=== PATIENT | male | born 1945 | race Caucasian/White ===

== ENCOUNTER 2017-03-24 10:47 | Emergency (ER) | payer OTHER ==
[~2017-03-24] VITALS: Ht 177.8 cm; Wt 99.8 kg
[~2017-03-24 10:47] MED LIST: ANALGESIC325 MG PO; ASPIRIN EC325 M1 PO; ASPIRIN EC81 M1 PO; CARVEDILOL6.25 MG PO; COUMADIN 2.5MG2.5 M1 PO; LOVASTAT20 PO; NORCO 5-325 TA1 EACH PO; PRILOSEC 20 MG20 MG PO
[2017-03-24 11:03] LABS: ABSOLUTE BASOPHILS 0.1 thou/uL (0.0-0.2); ABSOLUTE EOSINOPHILS 0.1 thou/uL (0.0-0.7); ABSOLUTE LYMPHOCYTES 1.6 thou/uL (0.8-5.3); ABSOLUTE MONOCYTES 0.6 thou/uL (0.0-1.2); BASOPHILS 0.8 %; EOSINOPHILS 1.5 %; HEMATOCRIT 46.6 % (42.0-52.0); HEMOGLOBIN 15.3 gm/dL (14.0-18.0); LYMPHOCYTES 18.9 %; MCHC 32.9 g/dL (28.0-37.0); MCV 85.2 fL (80.0-100.0); MONOCYTES 7.4 %; MPV 8.8 fl. (7.2-11.1); NUCLEATED RBCS 0 /100WBC; PLATELET COUNT* 214 thou/uL (150-400); POLYS 71.4 %; RBC 5.46 mil/uL (4.50-6.00); RDW-CV 13.9 % (10.5-14.5); WBC 8.3 thou/uL (4.0-11.0)
[2017-03-24 11:13] LABS: ANION GAP 6 mmol/L (7-16); BUN 19 mg/dL (7-18); CHLORIDE 105 mmol/L (98-107); CO2 31 mmol/L (21-32); CREATININE 1.1 mg/dL (0.6-1.3); GLUCOSE 154 mg/dL (70-99); POTASSIUM 4.3 mmol/L (3.5-5.1); SODIUM 142 mmol/L (136-145)
[2017-03-24 11:16] LABS: APTT 29.4 Seconds (25.0-31.3); INR 1.1; PROTIME 10.4 Seconds (9.20-11.50)
[2017-03-24 11:47] LABS: ALBUMIN 3.6 g/dL (3.4-5.0); ALKALINE PHOSPHATASE 71 U/L (46-116); CK-MB MASS 0.6 ng/mL (<0.5-3.6); LIPASE 240 U/L (73-393); MAGNESIUM 2.1 mg/dL (1.8-2.4); NT-PRO BRAIN NAT PEPTIDE 882 pg/mL (<300); SGOT 15 U/L (15-37); SGPT 22 U/L (30-65); TOTAL BILIRUBIN 1.4 mg/dL (<0.1-1.0); TOTAL PROTEIN 7.7 g/dL (6.4-8.2); TROPONIN-I LEVEL <0.06 ng/mL (<0.06)
[2017-03-24 13:04] VITALS: BP 171/103
--- NOTE | 2017-03-24 16:23 | EKG ---
[place] [address] ELECTROCARDIOGRAM REPORT Name: HAROON ROBERTSON [id number] Admission: 03/24/17 Attend Phys: Discharge: 03/24/17 Date of : 43 Report #: [id number] THIS REPORT FOR: //name// [facility] ED Test Date: 2017-03-24 Test Time: 10:54:19 Pat Name: HAROON ROBERTSON Department: Room: Gender: M Business Rules Developer: Madhu PEREZ : 1945 Requested By: Greg Goff Order Number: [id number] MD: Andres Barton Measurements Intervals [place] Rate: 78 P: PA: QRS: 13 QRSD: 85 T: 50 QT: 402 QTc: 458 Interpretive Statements Atrial fibrillation early transition Compared to ECG 03/20/2013 16:48:59 ST (T wave) deviation no longer present Electronically Signed On 03-24-2017 16:23:11 BIOINFORMATICS TECHNICIAN by Andres Barton [email or web address] <ELECTRONICALLY SIGNED> By: Andres Barton MD, [facility] 03/24/17 1623 1053 53 Andres Barton MD, FACC /EPI
== END 2017-03-24 13:07 | disposition home or self-care (01) ==
LOC: M.ERS 10:47
PROVIDERS: Family Medicine
DX: F41.9 Anxiety disorder, unspecified (principal); I48.91 Unspecified atrial fibrillation; I10 Essential (primary) hypertension; Z86.73 Personal history of transient ischemic attack (TIA), and cerebral infarction without residual deficits

== ENCOUNTER 2019-04-23 07:13 | Inpatient (IN) | payer MEDICARE ==
[~2019-04-23] VITALS: Ht 180.3 cm; Wt 102.5 kg
[2019-04-23 07:14] VITALS: BP 209/112
--- NOTE | 2019-04-23 07:23 | NUR ---
DR AMEZQUITA TO EVALUATE
[2019-04-23 07:56] LABS: ABSOLUTE BASOPHILS 0.1 thou/uL (0.0-0.2); ABSOLUTE EOSINOPHILS 0.1 thou/uL (0.0-0.7); ABSOLUTE LYMPHOCYTES 1.7 thou/uL (0.8-5.3); ABSOLUTE MONOCYTES 0.8 thou/uL (0.0-1.2); ABSOLUTE NEUTROPHILS 8.2 thou/uL (1.6-8.1); BASOPHILS 1.1 %; EOSINOPHILS 1.2 %; HEMATOCRIT 44.2 % (42.0-52.0); HEMOGLOBIN 14.9 gm/dL (14.0-18.0); LYMPHOCYTES 15.4 %; MCH 28.8 pg (26.0-34.0); MCHC 33.8 g/dL (28.0-37.0); MCV 85.2 fL (80.0-100.0); MONOCYTES 7.1 %; MPV 9.1 fl. (7.2-11.1); NUCLEATED RBCS 0 /100WBC; PLATELET COUNT* 216 thou/uL (150-400); POLYS 75.2 %; RBC 5.19 mil/uL (4.50-6.00); RDW-CV 14.5 % (10.5-14.5); WBC 10.9 thou/uL (4.0-11.0)
[2019-04-23 08:07] LABS: CALCIUM 8.1 mg/dL (8.5-10.1); CREATININE 0.9 mg/dL (0.6-1.3); POTASSIUM 3.6 mmol/L (3.5-5.1)
[2019-04-23 08:08] LABS: APTT 30.1 Seconds (25.0-31.3); PROTIME 10.4 Seconds (9.20-11.50)
[2019-04-23 08:20] LABS: INFLUENZA A ANTIGEN Negative (Negative); INFLUENZA B ANTIGEN Negative (Negative)
[2019-04-23 08:22] LABS: ALBUMIN 3.4 g/dL (3.4-5.0); MAGNESIUM 1.6 mg/dL (1.8-2.4); TOTAL PROTEIN 7.8 g/dL (6.4-8.2)
--- NOTE | 2019-04-23 13:30 | NUR ---
REPORT GIVEN TO JELENA HARDY WHO IS TO ASSUME PT CARE INPATIENT NURSE.
[2019-04-23 13:37] VITALS: BP 180/99
[2019-04-23 14:10] VITALS: BP 184/84
[2019-04-23 14:40] LABS: ANION GAP 9 mmol/L (7-16); CHLORIDE 102 mmol/L (98-107); CHOLESTEROL 167 mg/dL (<200); CO2 29 mmol/L (21-32); HDL CHOLESTEROL 37 mg/dL (>40); LDL CHOLESTEROL 119 mg/dL (<100); POTASSIUM 3.6 mmol/L (3.5-5.1); SERUM ASSESSMENT CLEAR; SODIUM 140 mmol/L (136-145); TC:HDL 4.5 Ratio (Not establshd); TRIGLYCERIDE 56 mg/dL (<150); VLDL 11 mg/dL (<40)
--- NOTE | 2019-04-23 15:09 | NUR ---
PT ADMITTED TO ROOM 210 FROM ED WITH CHEST PAIN AND PNA VIA CART. PT IS ALERT AND ABLE TO ANSWER APPROPRIATELY.VSS ON RA. PT C/O PAIN TO BILATERAL FEET. IVSL.PT IS LIVING IN [place] AND HAS BEEN LIVING THERE FOR 3 YEARS POST DIVORCE BECAUSE FRIEND OWNS [place]. PT EDUCATED TO PLAN OF CARE,TREATMENTS, FALL PRECAUTIONS AND CALL LIGHT. CARLOS
[2019-04-23 16:00] VITALS: BP 198/96
[2019-04-23 20:30] VITALS: BP 144/67
[2019-04-24] VITALS (7 sets, daily range): BP systolic 147–187; BP diastolic 65–85
--- NOTE | 2019-04-24 05:40 | NUR ---
PT CARE ASSUMED AT 1930. SAT MAINTAINED IN RA. PT IS CONFUSED. INCONTINENT OF BLADDER. C/O PAIN, MEDICATION GIVEN PER EMAR. HOURLY ROUNDING DONE FOR PT SAFETY. CALL LIGHT WITHIN REACH AND BED IN LOW POSITION. HOURLY ROUNDING DONE FOR PT SAFETY.
[2019-04-24 10:51] LABS: URINE BILIRUBIN NEGATIVE (Negative); URINE BLOOD NEGATIVE (Negative); URINE CLARITY CLEAR; URINE COLOR YELLOW; URINE GLUCOSE-RANDOM 3+ (Negative); URINE KETONES NEGATIVE (Negative); URINE LEUKOCYTES-REFLEX NEGATIVE (Negative); URINE NITRITE-REFLEX NEGATIVE (Negative); URINE PROTEIN 2+ (Negative)
[2019-04-24 10:56] LABS: BACTERIA-REFLEX 1-9 Few /HPF (None Seen); MUCUS 0-3 Light strn/LPF (None Seen); SQUAMOUS 0-3 Few /LPF (0-3); URINE RBC 0-2 Rare /HPF (0-2); URINE WBC-REFLEX 0-5 Rare /HPF (0-5)
[2019-04-24 10:57] LABS: CASTS None Seen /LPF (None Seen); CRYSTALS None Seen /LPF (None Seen)
--- NOTE | 2019-04-24 12:27 | NUR ---
Pt is A&O. Resides at the [facility]. Pt is independent, goes to [place] to get meals. Pt's neighbor or a cab provides transportation. Pt uses a cane for mobility, Pt asked if he qualifies for a new cane. Per Daniella at [facility], Pt does not currently have Part B benefits, so Pt will need to call Medicare to activate his Part B benefits or pay henson for one. CM to update Pt. Hx of , does not recall the name of the agency. Hx of skilled at [facility]. Per Pt, he plans to move in with his son in the near future. Goal is home at in, following.
--- NOTE | 2019-04-24 16:30 | 2DMMODE ---
[place] [address] 2 D/M-MODE ECHOCARDIOGRAM Name: AILYNHAROON Room: [address] IN .R.#: [id number] Admission: 04/23/19 Attend Phys: Nabor Madrigal Discharge: Date of : 43 Date of Service: 04/24/19 1629 Report #: [id number] THIS REPORT FOR: cc: FAM - No family physician/PCP FAM - No family physician/PCP Michael Cortez MD [facility] ~ APPROVED REPORT Study performed: 04/24/2019 10:22:42 EXAM: Comprehensive 2D, Doppler, and color-flow Echocardiogram Patient Location: In-Patient Room #: [facility] BSA: 2.18 HR: 77 bpm BP: 164/79 mmHg Other Information Study Quality: Good Indications Atrial Fibrillation Dyspnea 2D Dimensions IVSd: 13.69 (7-11mm) LVOT Diam: 20.51 (18-24mm) LVDd: 53.57 mm PWd: 11.25 (7-11mm) Ascending Ao: 38.54 (22-36mm) LVDs: 30.52 (25-40mm) Aortic Root: 24.28 mm Volumes Left Atrial Volume (Systole) LA ESV Index: 46.40 mL/m2 Aortic Valve AoV Peak Mikael.: 1.53 m/s AO Peak Gr.: 9.34 mmHg LVOT Max P.23 mmHg AO Mean Gr.: 5.30 mmHg LVOT Mean P.89 mmHg LVOT Max V: 1.03 m/s AO V2 VTI: 27.76 cm LVOT Mean V: 0.62 m/s LYDIA (VTI): 2.16 cm2 LVOT V1 VTI: 18.17 cm AI [place]: 3.31 m/s2 [place] [address] 2 D/M-MODE ECHOCARDIOGRAM Name: HAROON ROBERTSON Room: [address]#: [id number] Admission: 04/23/19 Attend Phys: Nabor Madrigal Discharge: Date of : 43 Date of Service: 04/24/19 1629 Report #: [id number] AI PHT: 394.17 ms Mitral Valve MV Decel. Time: 154.09 ms MV PHT: 44.69 ms MVA (PHT): 4.92 cm2 TDI Medial E' Mikael.: 0.07 m/s Lateral E' Mikael.: 0.11 m/s Pulmonary Valve PV Peak Mikael.: 0.91 m/s PV Peak Gr.: 3.29 mmHg Tricuspid Valve RAP Estimate: 5.00 mmHg TR Peak Gr.: 30.99 mmHg RVSP: 35.99 mmHg PA Pressure: 35.99 mmHg Left Ventricle The left ventricle is normal size. There is normal LV segmental wall motion. There is normal left ventricular wall thickness. Left ventricular systolic function is normal. The left ventricular ejection fraction is within the normal range. LVEF is 55%. This study is not technically sufficient to allow evaluation of the LV diastolic function due to atrial fibrillation. Right Ventricle The right ventricle is normal size. The right ventricular systolic function is normal. Atria Left atrium is mildly dilated. The right atrium size is normal. Aortic Valve Mild aortic valve sclerosis. Mild to moderate aortic regurgitation. There is no aortic valvular stenosis. Mitral Valve The mitral valve is normal in structure. Mild to moderate mitral regurgitation. No evidence of mitral valve stenosis. Tricuspid Valve The tricuspid valve is normal in structure. Mild [place] [address] 2 D/M-MODE ECHOCARDIOGRAM Name: HAROON ROBERTSON Room: [address]#: [id number] Admission: 04/23/19 Attend Phys: Nabor Madrigal Discharge: Date of : 43 Date of Service: 04/24/19 1629 Report #: [id number] Pulmonic Valve The pulmonary valve is normal in structure. Mild pulmonic regurgitation. Great Vessels The aortic root is normal in size. IVC is normal in size and collapses >50% with inspiration. Pericardium There is no pericardial effusion. <Conclusion> The left ventricle is normal size. There is normal left ventricular wall thickness. Left ventricular systolic function is normal. The left ventricular ejection fraction is within the normal range. LVEF is 55%. This study is not technically sufficient to allow evaluation of the LV diastolic function due to atrial fibrillation. The right ventricle is normal size. Left atrium is mildly dilated. Mild aortic valve sclerosis. Mild to moderate aortic regurgitation. There is no aortic valvular stenosis. The mitral valve is normal in structure. Mild to moderate mitral regurgitation. No evidence of mitral valve stenosis. The tricuspid valve is normal in structure. Mild tricuspid regurgitation. IVC is normal in size and collapses >50% with inspiration. There is no pericardial effusion. There is normal LV segmental wall motion. <ELECTRONICALLY SIGNED> By: Michael Cortez MD, FACC 04/24/19 1629 28 162 Michael Cortez MD, FACC /INF
--- NOTE | 2019-04-24 18:33 | NUR ---
ASSUMED PT CARE AT 0800, AOX4, UP WITH ASSIST, O2 SAT 90'S RA. TRACING AFIB ON TELE. PT COMPLAINS OF CHEST PAIN, STATE HE IS NOT FEELING GOOD. PAIN MEDS GIVEN WITH MID RELIEF. PT CHECK BLOOD SUGAR 313. PROVIDER NOTIFY. DIET CHANGED TO 1800 CARB CONTROL. A1C LAB ORDERED. PT FOR MRI, REPORT PT CLAUSTROPHOBIC, ATIVAN GIVEN PER MAR. INSERTED IV AT R FOREARM, IVF INFUSSING ORDERED. VSS, AM ASSESSMENT CHARTED, CALL LIGHT WITHIN REACH, HOURLY ROUNDING, WILL CONTINUE TO MONITOR.
[2019-04-25] VITALS (7 sets, daily range): BP systolic 148–193; BP diastolic 75–101
[2019-04-25 06:11] LABS: GLYCOHEMOGLOBIN (HGB A1C) 11.7 % (4.8-5.6)
--- NOTE | 2019-04-25 07:47 | NUR ---
PT CARE ASSUMED AT 1930. SOB THIS AM, SAT DROPPED TO 91% IN RA, CONNECTED TO 2L NC. ALERT AND ORIENTED X4. C/O PAIN, MEDICATION GIVEN PER EMAR. CALL LIGHT WITHIN REACH AND BED IN LOW POSITION. INCONTINENT OF BLADDER. HOURLY ROUNDING DONE FOR PT SAFETY.
--- NOTE | 2019-04-25 16:57 | NUR ---
I have reviewed the documentation by YSABEL TALAMANTES from 04/25/19 to 04/25/19 and I concur with it. CLIFF DEVI
--- NOTE | 2019-04-25 18:16 | NUR ---
ASSUMED PT CARE AT 0800, AOX4, UP WITH ASSIST, USES URINAL, O2 SAT 90'S 2L NC. TRACING AFIB ON TELE. PT ACCU CHECK. PT ON LASIX, PT ON I&O MONITOR. AM ASSESSMENT CHARTED, MEDS GIVEN PER MAR, CALL LIGHT WITHIN REACH, WILL CONTINUE TO MONITOR.
[2019-04-26] VITALS: BP 146/61
[2019-04-26 04:30] VITALS: BP 164/61
--- NOTE | 2019-04-26 05:01 | NUR ---
PT CARE ASSUMED AT 1930. CONNECTED ON FOR SOA. ALERT AND ORIENTED X4. C/O PAIN, MEDICATION GIVEN PER EMAR. BP ELEVATED, PHYSICIAN NOTIFIED, MEDICATION GIVEN PER EMAR. CALL LIGHT WITHIN REACH AND BED IN LOW POSITION. HOURLY ROUNDING DONE FOR PT SAFETY.
[2019-04-26 05:15] LABS: CALCIUM 7.7 mg/dL (8.5-10.1); POTASSIUM 3.8 mmol/L (3.5-5.1)
[2019-04-26 08:00] VITALS: BP 181/87
--- NOTE | 2019-04-26 11:07 | NUR ---
Spoke with Pt regarding disposition, Pt wants to go skilled at dc. Pt requested that a referral be faxed to [facility], referral sent. Anticipate dc soon. Following.
[2019-04-26 11:35] VITALS: BP 173/76
--- NOTE | 2019-04-26 13:41 | NUR ---
Nutrition: Pt admitted with PNA. Assessed for Toy score 10. No wounds noted. Alb 3.4, BG 169. H/o DM. Wt: 229#. Heart Healthy diet. Pt will go to SNF at disch. No nutrition interventions needed at this time. Low risk.
--- NOTE | 2019-04-26 13:56 | EKG ---
[place] [address] ELECTROCARDIOGRAM REPORT Name: HAROON ROBERTSON Room: [address] IN .R.#: [id number] Admission: 04/23/19 Attend Phys: Nabor Madrigal Discharge: Date of : 43 Date of Service: 04/23/19 0715 Report #: [id number] THIS REPORT FOR: cc: MORAIMA - No family physician/PCP FAM - No family physician/PCP Michael Cortez MD [facility] THIS REPORT FOR: //name// [facility] ED Test Date: 2019-04-23 Test Time: 07:15:23 Pat Name: HAROON ROBERTSON Department: Room: [facility] Gender: M Lab Pack Chemist: : 1945 Requested By: Godfrey Gustafson Order Number: [id number] MD: Michael Cortez Measurements Intervals [place] Rate: 106 P: FL: QRS: 16 QRSD: 92 T: 82 QT: 378 QTc: 502 Interpretive Statements Atrial fibrillation LVH with secondary repolarization abnormality Prolonged QT interval Compared to ECG 03/24/2017 10:54:19 Left ventricular hypertrophy now present Early repolarization now present Prolonged QT interval now present Electronically Signed On 04-24-2019 15:59:02 FRAME RUNNER by Michael Cortez [email or web address] <ELECTRONICALLY SIGNED> By: Michael Cortez MD, [facility] 04/24/19 1559 4 4 Michael Cortez MD, [facility] /EPI
--- NOTE | 2019-04-26 14:08 | NUR ---
ASSUMED PT CARE AT 0800, AOX4, FORGETFUL, UP WITH ASSIST, O2 SAT 90'S 2L NC. TRACING AFIB ON TELE. PT COMPLAINS OF HEADACHE. PAIN MEDS GIVEN WITH RELIEF . PT LUNG SOUND WHEEZE. PT ACCU CHECK. VSS, AM ASSESSMENT CHARTED, HOURLY ROUNDING, WILL CONTINUE TO MONITOR.
[2019-04-26 16:13] VITALS: BP 187/94
--- NOTE | 2019-04-26 17:26 | NUR ---
I have reviewed the documentation by YSABEL TALAMANTES from 04/26/19 to 04/26/19 and I concur with it. CLIFF DEVI
--- NOTE | 2019-04-26 18:38 | CON ---
[address] [address] CONSULTATION Name: AILYNHAROON Gibbons Room: [address] IN .R.#: [id number] Admission: 04/23/19 Attend Phys: Dandre Wan Discharge: Date of : 43 Report #: [id number] THIS REPORT FOR: //name// cc: MORAIMA Moore family physician/PCP MORAIMA - Teresa family physician/PCP ~ THIS REPORT FOR: //name// CC: MORAIMA physician/PCP Nabor Madrigal DATE OF SERVICE: 04/24/2019 HISTORY OF PRESENT ILLNESS: A 74-year-old male patient, who was seen by me for a poorly-defined history. 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 He said he feels bad, but it is not clear what neurological deficit it causes and he sleeps and he wakes up fine. That is unusual history for the stroke. It is possible he may have had a TIA. It might be noticed that the patient has atrial fibrillation and he used to be on Coumadin, but then he stopped taking his Coumadin a long time ago because he could not afford it. He denies any psychiatric history, but looks like he has a history of anxiety. He is going to be seen by manager [employer]. Neurological consultation was requested because the patient is complaining of leg weakness. He said it is going on for a few days. Exact duration is not clear. It started spontaneously without any trauma. He does not know any thing, which makes it better or worse. He does have a history of hypertension, shortness of breath, but he denies any smoking. He denies any eye/ENT symptom. He does have chest pain. He denies any aggravation of his respiratory deficit or any GI, , musculoskeletal, constitutional, dermatological, hematological, throat, allergic symptom associated with present symptomatology. PAST MEDICAL HISTORY: Positive for strokes, but that history is poorly defined. FAMILY HISTORY: Unremarkable. SOCIAL HISTORY: He does have a son, but I was not able to talk to him, but we will try again. He does not smoke or drink alcohol according to him. PHYSICAL EXAMINATION: NEUROLOGIC: Indicate he is alert, responsive, able to follow simple and complex command. He is a poor historian. His memory and fund of knowledge is at his baseline. Cranial nerve examination 2-12 does not appear to be showing any abnormality. He appeared to be weak in all 4 extremities. How much weak he is, is difficult to tell because some of it appeared to be giveway weakness. He does have reflexes in all 4 extremities. It is difficult to tell about plantars. Tone looks symmetrical. His position sense is intact[place] [address] CONSULTATION Name: HAROON ROBERTSON Room: [address] IN [facility]#: [id number] Admission: 04/23/19 Attend Phys: Dandre Wan Discharge: Date of : 43 Report #: [id number] appear to have much cerebellar sign, but he does appear to have significant weakness in all 4 extremities. I could not look at his fundus. He is a well-built individual. He does not have any edema, cyanosis or jaundice. CARDIAC: Indicates irregular heart rate. LUNGS: No respiratory difficulty or rhonchi was noticed. NECK: He has no thyroid mass. HEENT: His hearing and vision looks intact. VITAL SIGNS: His blood pressure is 164/79, respiration is 19, pulse is 79, temperature is 97.8. LABORATORY DATA: His white count is 10.9. His sodium is normal at 140. His glucose is 257. His magnesium is low. His calcium is low. IMPRESSION: It is difficult to form in this patient. Although, he is predisposed for cerebrovascular accident, but the history is pretty atypical for cerebrovascular accident. Spine lesion needs to be excluded, but that is difficult to exclude because he indicates he is claustrophobic, I am not sure how much. We will see if he can tolerate the MRI, that will be the best trick and further workup will depend upon the outcome of those testing. His blood sugar is high. He is also predisposed to diabetes and that testing may have to be done as an outpatient. Thank you very much for this referral. <ELECTRONICALLY SIGNED> By: Sean Rodriguez MD 04/26/19 1838 1000 1039Sean Rodriguez MD /nt
[2019-04-26 20:00] VITALS: BP 195/90
[2019-04-27] VITALS (7 sets, daily range): BP systolic 153–202; BP diastolic 73–113
--- NOTE | 2019-04-27 05:18 | NUR ---
ASSUMED PATIENT CARE AT 1900. ASSESSMENT COMPLETED CHARTED. PATIENT IS AFIB ON THE MONITOR. HOURLY ROUNDING IN PLACE FOR PATIENT SAFETY. CLWR.
--- NOTE | 2019-04-27 18:40 | NUR ---
ASSUMED PT CARE AT 0730. ASSESSMENT COMPLETED CHARTED. ABLE TO MAKE NEEDS KNOWN. UP WITH 1 WITH WALKER. NO C/O PAIN OR DISCOMFORT. RESTING IN RECLINER AT THIS TIME. CALL LIGHT WITHIN REACH. WAS ASKING WHEN HE WOULD GO TO SKILLED. WILL CONTINUE TO MONITOR.
[2019-04-28 00:33] VITALS: BP 139/67
--- NOTE | 2019-04-28 04:13 | NUR ---
ASSUMED PATIENT CARE AT 1900. ASSESSMENT COMPLETED CHARTED. PATIENT IS AFIB ON THE MONITOR. HOURLY ROUNDING IN PLACE FOR PATIENT SAFETY. CLWR.
[2019-04-28 04:28] VITALS: BP 165/81
[2019-04-28 05:24] LABS: CALCIUM 8.1 mg/dL (8.5-10.1); CREATININE 0.9 mg/dL (0.6-1.3); MAGNESIUM 1.8 mg/dL (1.8-2.4); POTASSIUM 3.5 mmol/L (3.5-5.1)
[2019-04-28 08:00] VITALS: BP 205/87
[2019-04-28] MEDS ORDERED: MELATONIN5 M1 PO (11:45)
[2019-04-28] MEDS ORDERED: WELLBUTRIN XL150 MG PO (11:45)
[2019-04-28] MEDS ORDERED: CEFDINIR300 MG PO (11:45)
[2019-04-28] MEDS ORDERED: LIPITOR40 MG PO (11:45)
[2019-04-28] MEDS ORDERED: BENAZEPRIL HCL40 MG PO (11:45)
[2019-04-28] MEDS ORDERED: ASA81BEC PO (11:45)
[2019-04-28] MEDS ORDERED: VITAMIN D325 MCG PO (11:45)
[2019-04-28] MEDS ORDERED: AZITHROMYCIN 2250 MG PO (11:45)
[2019-04-28] MEDS ORDERED: ELIQUIS5 MG PO (11:45)
[2019-04-28] MEDS ORDERED: IPRAT-ALBUT 0.5-3 ML INH (11:45)
[2019-04-28] MEDS ORDERED: XANAX 0.5 MG0.5 MG PO (11:45)
[2019-04-28] MEDS ORDERED: GLUCOPHAGE850 MG PO (11:45)
[2019-04-28] MEDS ORDERED: CARVEDILOL12.5 MG PO (11:45)
[2019-04-28] MEDS ORDERED: CATAPRES0.1 MG PO (11:46)
[2019-04-28 12:00] VITALS: BP 183/78
--- NOTE | 2019-04-28 12:34 | NUR ---
Pt discharging to [facility] skilled today, faxed dc orders. Chart copied. Nurse report number is [phone]. Left VM for Pt's son. 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
[2019-04-28] MEDS ORDERED: NORVASC5 M1 PO (13:55)
--- NOTE | 2019-04-28 16:00 | NUR ---
ASSUMED PT CARE AT 0730. ASSESSMENT COMPLETED CHARTED. ABLE TO MAKE NEEDS KNOWN. UP WITH ASSIST. C/O HEADACHE AND GAVE PRN PER EMAR. RESTING IN BED MOST OF THE DAY. DISHCARGE APPROVED. DISCHARGE PAPERWORK AND SCRIPTS PUT IN PACKET, IV AND HEART MONITOR REMOVED. CALL LIGHT WITHIN REACH. LEFT HOSPITAL AROUND 1530 WITH TRANSPORTER AND GAVE REPORT TO [facility] AROUND 1540. NO COMMENTS, QUESTIONS, OR CONCERNS NOTED. ALL BELONGINGS TAKEN WITH PT.
== END 2019-04-28 15:40 | DRG 193 ==
LOC: M.ERS 07:13 → M.2W 08:56 → M.TBA-ER 08:56 → M.2W 13:47
PROVIDERS: Emergency Medicine Emergency Medical Services; Internal Medicine; Registered Nurse; ADMIT Internal Medicine
DX: J15.9 Unspecified bacterial pneumonia (principal); I50.33 Acute on chronic diastolic (congestive) heart failure; J96.01 Acute respiratory failure with hypoxia; I48.20 Chronic atrial fibrillation, unspecified; F41.1 Generalized anxiety disorder; M47.899 Other spondylosis, site unspecified; E66.9 Obesity, unspecified; E78.5 Hyperlipidemia, unspecified; E11.9 Type 2 diabetes mellitus without complications; I35.1 Nonrheumatic aortic (valve) insufficiency; I11.0 Hypertensive heart disease with heart failure; Z79.82 Long term (current) use of aspirin; Z79.899 Other long term (current) drug therapy; Z79.2 Long term (current) use of antibiotics; Z68.31 Body mass index [BMI] 31.0-31.9, adult; Z86.73 Personal history of transient ischemic attack (TIA), and cerebral infarction without residual deficits; Z95.5 Presence of coronary angioplasty implant and graft; Z79.01 Long term (current) use of anticoagulants; Z79.51 Long term (current) use of inhaled steroids

== ENCOUNTER 2020-09-13 00:57 | Inpatient (IN) | payer MEDICARE ==
[~2020-09-13] VITALS: Ht 177.8 cm; Wt 101.6 kg
[~2020-09-13 00:57] MED LIST changes: +ASA81BEC PO; +AZITHROMYCIN 2250 MG PO; +BENAZEPRIL HCL40 MG PO; +CARVEDILOL12.5 MG PO; +CATAPRES0.1 MG PO; +CEFDINIR300 MG PO; +ELIQUIS5 MG PO; +GLUCOPHAGE850 MG PO; +IPRAT-ALBUT 0.5-3 ML INH; +LIPITOR40 MG PO; +MELATONIN5 M1 PO; +NORVASC5 M1 PO; +VITAMIN D325 MCG PO; +WELLBUTRIN XL150 MG PO; +XANAX 0.5 MG0.5 MG PO
[2020-09-13 00:58] VITALS: BP 214/104
[2020-09-13 01:30] LABS: ABSOLUTE BASOPHILS 0.1 thou/uL (0.0-0.2); ABSOLUTE EOSINOPHILS 0.2 thou/uL (0.0-0.7); ABSOLUTE LYMPHOCYTES 1.5 thou/uL (0.8-5.3); ABSOLUTE MONOCYTES 0.9 thou/uL (0.0-1.2); ABSOLUTE NEUTROPHILS 5.9 thou/uL (1.6-8.1); EOSINOPHILS 2.2 %; HEMATOCRIT 38.4 % (42.0-52.0); HEMOGLOBIN 13.1 gm/dL (14.0-18.0); LYMPHOCYTES 17.7 %; MCH 28.2 pg (26.0-34.0); MCHC 34.1 g/dL (28.0-37.0); MCV 82.7 fL (80.0-100.0); MONOCYTES 10.7 %; MPV 8.4 fl. (7.2-11.1); NUCLEATED RBCS 0 /100WBC; PLATELET COUNT* 220 thou/uL (150-400); POLYS 68.4 %; RBC 4.64 mil/uL (4.50-6.00); WBC 8.5 thou/uL (4.0-11.0)
[2020-09-13 01:59] LABS: CALCIUM 8.5 mg/dL (8.5-10.1); CREATININE 1.1 mg/dL (0.6-1.3); POTASSIUM 3.4 mmol/L (3.5-5.1)
[2020-09-13 02:03] LABS: APTT 29.1 Seconds (25.0-31.3); PROTIME 10.7 Seconds (9.20-11.50)
[2020-09-13 02:10] LABS: ALBUMIN 3.6 g/dL (3.4-5.0); TOTAL BILIRUBIN 2.3 mg/dL (<0.1-1.0); TOTAL PROTEIN 8.2 g/dL (6.4-8.2)
[2020-09-13 04:14] LABS: URINE BILIRUBIN NEGATIVE (Negative); URINE BLOOD TRACE (Negative); URINE CLARITY CLEAR; URINE COLOR YELLOW; URINE GLUCOSE-RANDOM TRACE (Negative); URINE KETONES NEGATIVE (Negative); URINE LEUKOCYTES-REFLEX NEGATIVE (Negative); URINE NITRITE-REFLEX NEGATIVE (Negative); URINE PROTEIN 2+ (Negative); URINE UROBILINOGEN 0.2 E.U./dl (0.2-1.0)
[2020-09-13 04:31] LABS: CRYSTALS None Seen /LPF (None Seen); FINE GRANULAR CASTS 0-3 Few /LPF (None Seen); HYALINE CASTS 0-3 Few /LPF (None Seen); MUCUS 4-6 Moderate strn/LPF (None Seen); SQUAMOUS 0-3 Few /LPF (0-3); URINE RBC 3-10 Few /HPF (0-2); URINE WBC-REFLEX 0-5 Rare /HPF (0-5)
[2020-09-13 05:36] VITALS: BP 173/76
[2020-09-13 08:00] VITALS: BP 164/88
--- NOTE | 2020-09-13 10:31 | EKG ---
[place] [address] ELECTROCARDIOGRAM REPORT Name: AILYNHAROON Room: [address] ADM IN .R.#: [id number] Admission: 09/13/20 Attend Phys: Josi Reardon, Discharge: Date of : 43 Date of Service: 09/13/20 0058 Report #: [id number] THIS REPORT FOR: //name// [facility] ED Test Date: 2020-09-13 Test Time: 00:58:07 Pat Name: HAROON ROBERTSON Department: Room: [facility] Gender: M Foot Setter: [place] : 1945 Requested By: Zee Estrada Order Number: [id number] MD: Andres Barton Measurements Intervals [place] Rate: 107 P: MS: QRS: 19 QRSD: 82 T: 71 QT: 371 QTc: 495 Interpretive Statements sinus tachycardia Probable LVH with secondary repol abnrm Borderline prolonged QT interval Compared to ECG 04/23/2019 07:15:23 no change Electronically Signed On 09-13-2020 10:31:17 CDT by Andres Barton [email or web address] <ELECTRONICALLY SIGNED> By: Andres Barton MD, [facility] 09/13/20 1031 0058 0058 Andres Barton MD, [facility] /EPI
[2020-09-13 11:57] VITALS: BP 194/104
[2020-09-13 13:20] LABS: MAGNESIUM 1.9 mg/dL (1.8-2.4); PHOSPHORUS* 3.3 mg/dL (2.5-4.9)
--- NOTE | 2020-09-13 15:32 | 2DMMODE ---
[place] [address] 2 D/M-MODE ECHOCARDIOGRAM Name: HAROON ROBERTSON Room: [address] IN .Hans.#: [id number] Admission: 09/13/20 Attend Phys: Josi Reardon, Discharge: Date of : 43 Date of Service: 09/13/20 1532 Report #: [id number] THIS REPORT FOR: cc: FAM - No family physician/PCP FAM - No family physician/PCP Andres Barton MD [facility] ~ APPROVED REPORT Study performed: 09/13/2020 13:35:59 EXAM: Comprehensive 2D, Doppler, and color-flow Echocardiogram Patient Location: In-Patient Room #: [facility] Status: routine BSA: 2.19 Rhythm: Atrial Fibrillation Other Information Study Quality: Good Indications Chest Pain 2D Dimensions IVSd: 13.47 (7-11mm) LVOT Diam: 20.92 (18-24mm) LVDd: 55.24 mm PWd: 13.09 (7-11mm) Ascending Ao: 39.46 (22-36mm) LVDs: 38.42 (25-40mm) Aortic Root: 34.96 mm Volumes Left Atrial Volume (Systole) LA ESV Index: 66.20 mL/m2 Aortic Valve AoV Peak Mikael.: 1.65 m/s AO Peak Gr.: 10.89 mmHg LVOT Max P.94 mmHg AO Mean Gr.: 5.46 mmHg LVOT Mean P.83 mmHg LVOT Max V: 0.99 m/s AO V2 VTI: 28.35 cm LVOT Mean V: 0.61 m/s LYDIA (VTI): 2.50 cm2 LVOT V1 VTI: 20.61 cm AI [place]: 2.87 m/s2 AI PHT: 412.83 [place] [address] 2 D/M-MODE ECHOCARDIOGRAM Name: HAROON ROBERTSON Room: [address] IN .R.#: [id number] Admission: 09/13/20 Attend Phys: Josi Reardon, Discharge: Date of : 43 Date of Service: 09/13/20 1532 Report #: [id number] TDI Medial E' Mikael.: 0.10 m/s Lateral E' Mikael.: 0.16 m/s Pulmonary Valve PV Peak Mikael.: 0.90 m/s PV Peak Gr.: 3.23 mmHg Tricuspid Valve RAP Estimate: 5.00 mmHg TR Peak Gr.: 39.47 mmHg RVSP: 44.00 mmHg PA Pressure: 44.00 mmHg Left Ventricle The left ventricle is normal size. There is normal LV segmental wall motion. Mild concentric left ventricular hypertrophy. Left ventricular systolic function is normal. The left ventricular ejection fraction is within the normal range. LVEF is 55-60%. This study is not technically sufficient to allow evaluation of the LV diastolic function due to atrial fibrillation. Right Ventricle The right ventricle is normal size. The right ventricular systolic function is normal. Atria Left atrium is severely dilated. Right atrium is mildly dilated. Aortic Valve Mild aortic valve sclerosis. Moderate aortic regurgitation. There is no aortic valvular stenosis. Mitral Valve The mitral valve is normal in structure. mild mitral regurgitation. No evidence of mitral valve stenosis. Tricuspid Valve The tricuspid valve is normal in structure. Trace tricuspid regurgitation. estimated pa pressure 50 mm Hg Pulmonic Valve The pulmonary valve is normal in structure. Trace pulmonic regurgitation[place] [address] 2 D/M-MODE ECHOCARDIOGRAM Name: HAROON ROBERTSON Room: [address]#: [id number] Admission: 09/13/20 Attend Phys: Josi Reardon, Discharge: Date of : 43 Date of Service: 09/13/20 1532 Report #: [id number] The aortic root is normal in size. The ascending aorta is mildly dilated. IVC is normal in size and collapses >50% with inspiration. Pericardium There is no pericardial effusion. <Conclusion> Mild concentric left ventricular hypertrophy. LVEF is 55-60%. Left atrium is severely dilated. Mild aortic valve sclerosis. Moderate aortic regurgitation. mild mitral regurgitation. Trace tricuspid regurgitation. estimated pa pressure 50 mm Hg <ELECTRONICALLY SIGNED> By: Andres Barton MD, [facility] 09/13/20 153 31 31 Andres Barton MD, FACC /INF
[2020-09-13 16:17] VITALS: BP 180/84
[2020-09-13 20:30] VITALS: BP 179/91
[2020-09-14 00:30] VITALS: BP 144/62
[2020-09-14 03:30] LABS: ABSOLUTE BASOPHILS 0.1 thou/uL (0.0-0.2); ABSOLUTE EOSINOPHILS 0.2 thou/uL (0.0-0.7); ABSOLUTE LYMPHOCYTES 1.4 thou/uL (0.8-5.3); ABSOLUTE MONOCYTES 0.9 thou/uL (0.0-1.2); ABSOLUTE NEUTROPHILS 5.6 thou/uL (1.6-8.1); BASOPHILS 0.9 %; HEMATOCRIT 40.1 % (42.0-52.0); HEMOGLOBIN 13.5 gm/dL (14.0-18.0); LYMPHOCYTES 17.4 %; MCH 27.9 pg (26.0-34.0); MCHC 33.7 g/dL (28.0-37.0); MCV 82.6 fL (80.0-100.0); MONOCYTES 11.2 %; MPV 8.7 fl. (7.2-11.1); NUCLEATED RBCS 0 /100WBC; PLATELET COUNT* 205 thou/uL (150-400); POLYS 68.5 %; RBC 4.86 mil/uL (4.50-6.00); RDW-CV 16.3 % (10.5-14.5); WBC 8.1 thou/uL (4.0-11.0)
[2020-09-14 03:39] LABS: CALCIUM 8.7 mg/dL (8.5-10.1); CREATININE 1.5 mg/dL (0.6-1.3); POTASSIUM 3.6 mmol/L (3.5-5.1)
[2020-09-14 05:09] VITALS: BP 140/70
[2020-09-14 08:00] VITALS: BP 173/80
--- NOTE | 2020-09-14 11:42 | CON ---
[address] [address] CONSULTATION Name: HAROON ROBERTSON Room: [address] IN M.R.#: [id number] Admission: 09/13/20 Attend Phys: Josi Reardon MD Discharge: Date of : 43 Report #: [id number] THIS REPORT FOR: cc: FAM - No family physician/PCP FAM - No family physician/PCP Andres Barton MD [facility] ~ DOC #: [id number] Andres Barton MD [facility] DATE OF CONSULTATION: 09/13/2020 CARDIOLOGY CONSULTATION HISTORY OF PRESENT ILLNESS: The patient is a 75-year-old single white male who I was asked to see in the hospital today after he complained of being short of breath. The history is obtained from the patient. There were also some old records on the patient. The patient was actually admitted here a year ago in 04/2019. He had a history of atrial fibrillation, but stopped taking all of his medications because of cost. He was on warfarin for about 3 years. He has had a previous stroke. The patient was actually evaluated by Cardiology during that hospitalization and he was discharged with a diagnosis of pneumonia, atrial fibrillation, diabetes. The patient recently moved into a hotel to find a place to live. He noticed some increasing shortness of breath and swelling. He uses a walker to get around. He was brought to the Emergency Room by paramedics last night with chest discomfort. He called 911. His blood pressure was noted to be elevated. He was brought to the Emergency Room and admitted for further evaluation and treatment. He does have occasional chest pain, although it is nonexertional, does not radiate. Denied any palpitations, syncope. PAST MEDICAL HISTORY: He denies a history of surgery. He has had a previous stroke, high blood pressure, atrial fibrillation. He is currently not on any medications. ALLERGIES: He has no known drug allergies. MEDICATIONS: Of note is that when he was discharged a year ago in 04/2019, he was sent home on an inhaler, Eliquis, carvedilol, benazepril, metformin, clonidine and aspirin. FAMILY HISTORY: His mom had heart disease. SOCIAL HISTORY: He is . Quit smoking years ago. No alcohol abuse. REVIEW OF SYSTEMS: He has had a previous stroke. No history of asthma, liver disease, kidney disease, cancer[place] [address] CONSULTATION Name: AILYNHAROON Room: [address]#: [id number] Admission: 09/13/20 Attend Phys: Josi Reardon MD Discharge: Date of : 43 Report #: [id number] PHYSICAL EXAMINATION: GENERAL: Revealed an elderly male, lying in bed, appeared in no acute distress. VITAL SIGNS: He had a blood pressure of 160/70, pulse is 80. He was afebrile. HEENT: He was anicteric. Conjunctivae pink. Mucous membranes moist. NECK: Veins nondistended. No carotid bruits. CHEST: Clear to auscultation. CARDIAC: ____ rhythm, no significant murmur. ABDOMEN: Distended, but soft. EXTREMITIES: Had no edema. Dorsalis pedis pulse cannot be palpated. SKIN: Cool and dry. NEUROLOGIC: Nonfocal. DIAGNOSTIC DATA: His ECG showed what appeared to represent atrial fibrillation with an increased ventricular response rate. Previous workup included an echocardiogram in 2019 that showed ejection fraction of 55%, aortic sclerosis, mild mitral regurgitation, mild tricuspid insufficiency. His chest x-ray yesterday showed normal heart size, mild congestion in the bases. He had a CT scan of the head that showed no acute abnormality, atrophy and chronic changes only. His carotid Doppler study was last performed in 2013, which showed no significant stenosis. LABORATORY DATA: Sodium 136, creatinine 1.1, glucose 197. His troponins all less than 0.06. BNP 2602. LDL last year was 119. TSH 0.8. White blood cell count 8.5, hematocrit 38.4. His COVID antigen stat test was negative. His urinalysis was positive for protein. IMPRESSION AND RECOMMENDATIONS: 1. Diastolic heart failure. Recommend Lasix. 2. History of stroke. 3. Atrial fibrillation. I would aim for rate control. The patient was on Eliquis in the past. 4. Hypertension. The patient has been on beta aaron and ARB in the past. 5. Hyperlipidemia. The patient was on a statin drug in the past. 6. Previous coronary stent. No recent angina. 7. Previous tobacco abuse. 8. Confusion. Andres Barton MD [facility] [place] [address] [address] CONSULTATION Name: AILYNHAROON Room: [address] IN ..#: [id number] Admission: 09/13/20 Attend Phys: Josi Reardon MD Discharge: Date of : 43 Report #: [id number] <ELECTRONICALLY SIGNED> By: Andres Barton MD, FACC 09/14/20 1142 [id number] [id number] Barton MD, FAC /nt
[2020-09-14 12:00] VITALS: BP 134/57
[2020-09-14 16:00] VITALS: BP 168/82
[2020-09-14 20:10] VITALS: BP 168/90
[2020-09-15] VITALS: BP 125/53
[2020-09-15 04:12] VITALS: BP 147/57
[2020-09-15 08:00] VITALS: BP 147/64
[2020-09-15 12:00] VITALS: BP 149/71
[2020-09-15 16:00] VITALS: BP 159/76
[2020-09-15 20:00] VITALS: BP 155/82
[2020-09-16] VITALS: BP 166/63
[2020-09-16 04:00] VITALS: BP 142/67
[2020-09-16 05:49] LABS: INR 1.1; PROTIME 11.7 Seconds (9.20-11.50)
[2020-09-16 08:25] VITALS: BP 167/82
[2020-09-16] MEDS ORDERED: CEFDINIR300 MG PO (09:02)
[2020-09-16] MEDS ORDERED: WARFARIN SODIUM5 MG PO (09:02)
[2020-09-16] MEDS ORDERED: BENAZEPRIL HCL20 MG PO (09:04)
[2020-09-16] MEDS ORDERED: LOPRESSOR50 PO (09:04)
[2020-09-16 15:17] VITALS: BP 165/81
[2020-09-16 19:16] VITALS: BP 156/72
[2020-09-16 20:00] VITALS: BP 164/77
[2020-09-17 01:22] VITALS: BP 141/56
[2020-09-17 04:37] LABS: INR 1.4; PROTIME 14.8 Seconds (9.20-11.50)
[2020-09-17 06:42] VITALS: BP 147/60
[2020-09-17 08:00] VITALS: BP 144/62
[2020-09-17 12:00] VITALS: BP 124/58
== END 2020-09-17 17:30 | DRG 304 ==
LOC: M.ERS 00:57 → M.2W 04:53 → M.TBA-ER 04:53 → M.2W 05:17
PROVIDERS: Internal Medicine; Internal Medicine Cardiovascular Disease; Personal Emergency Response Attendant; ADMIT Internal Medicine; ATTEND Internal Medicine
DX: I16.1 Hypertensive emergency (principal); I50.33 Acute on chronic diastolic (congestive) heart failure; N39.0 Urinary tract infection, site not specified; I11.0 Hypertensive heart disease with heart failure; E78.5 Hyperlipidemia, unspecified; I48.91 Unspecified atrial fibrillation; E11.9 Type 2 diabetes mellitus without complications; E87.6 Hypokalemia; Z20.822 Contact with and (suspected) exposure to COVID-19; Z79.01 Long term (current) use of anticoagulants; Z86.73 Personal history of transient ischemic attack (TIA), and cerebral infarction without residual deficits; Z79.899 Other long term (current) drug therapy; Z79.82 Long term (current) use of aspirin; Z79.84 Long term (current) use of oral hypoglycemic drugs; Z87.891 Personal history of nicotine dependence; Z95.5 Presence of coronary angioplasty implant and graft; Z91.14 Patient's other noncompliance with medication regimen

== ENCOUNTER 2020-09-29 13:38 | Inpatient (IN) | payer MEDICARE ==
[~2020-09-29] VITALS: Ht 177.8 cm; Wt 104.8 kg
--- NOTE | ~2020-09-29 | EEG ---
[address] [address] EEG STUDY REPORT Name: AILYNHAROON Room: [address] IN M.R.#: [id number] Admission: 09/29/20 Attend Phys: Medhat Morales MD Discharge: Date of : 44 Report #: [id number] THIS REPORT FOR: cc: FAM - No family physician/PCP FAM - No family physician/PCP Sean Rodriguez MD ~ DATE OF SERVICE: 10/02/2020 This patient is being evaluated for altered mental status. EEG was done by placing the electrode by standard 10-20 system of electrode placement. Both referential and sequential montages were used for recording. Background activity in this patient's EEG is about 8-9 Hz and 30 microvolt. It is intermixed with theta range slowing on both sides. Photic stimulation is unremarkable. The patient became drowsy and that is associated with bilateral slowing and vertex sharp waves. Throughout the record, no active epileptiform activity was noticed. IMPRESSION: This is a moderately abnormal EEG because it is intermixed with theta range slowing on both sides. That is a nonspecific abnormality which can occur with encephalopathy, effect of psychotropic medication, dementia, etc. Clinical correlation is recommended. By: 1242 [id number] Rodriguez MD /nt
--- NOTE | ~2020-09-29 | CON ---
[address] [address] CONSULTATION Name: HAROON ROBERTSON Room: [place] [address] ADM IN M.R.#: [id number] Admission: 09/29/20 Attend Phys: Medhat Morales MD Discharge: Date of : 44 Report #: [id number] THIS REPORT FOR: cc: MORAIMA - No family physician/PCP FAM - No family physician/PCP Sean Rodriguez MD ~ DATE OF CONSULTATION: 09/30/2020 HISTORY OF PRESENT ILLNESS: A 75-year-old male patient who was seen by me for altered mental status. Consultation was requested today by Dr. Morales. I discussed the patient with him and discussed the patient with the nurse looking after this patient. There is no family member. Neurology consultation is being requested for altered mental status. This patient says that he is just not feeling well. He does not give me any further history why he was not feeling well. He had a headache yesterday, but he said he does not have much headache today. On the monitor, his oxygen saturation was running in 70s and 80s according to the nurse. CT chest has shown interstitial edema and he was short of breath. He has been into the hospital multiple times and apparently his COVID antigen is negative, but PCR is pending. REVIEW OF SYSTEMS: Positive for atrial fibrillation and he is on chronic anticoagulation. He was admitted with hypertensive emergency. He had headache, but is better. He has a history of diabetes. He came with a chest pain and he just does not feel well. He does not complain of any eye, ENT symptoms. He had chest pain. He has respiratory difficulty. He was feeling somewhat nauseous. He had no musculoskeletal, constitutional, dermatological, hematological, psychiatric, throat symptoms. He is being evaluated for sepsis, but he does not have any symptoms of that. PAST MEDICAL HISTORY: Positive for multiple problems on multiple admissions for which she has been here. FAMILY HISTORY: Unremarkable. SOCIAL HISTORY: The patient apparently lives in a supervised living at the moment. PHYSICAL EXAMINATION: He is alert. He is responsive on many questions. He says he does not know, but his speech looks intact. Cranial nerve examination 2-12 looks unremarkable. He moves all 4 extremities. His position sense is intact. Reflexes are somewhat diminished, but I do not think he takes the position properly. I do not see any meningeal sign. I could not look at the patient's fundus. LABORATORY DATA: The patient's carotid Doppler [place] [address] CONSULTATION Name: HAROON ROBERTSON Room: [address] IN [facility]#: [id number] Admission: 09/29/20 Attend Phys: Medhat Morales MD Discharge: Date of : 43 Report #: [id number] stenosis. I am not sure about that as it is just elevation of the velocities. IMPRESSION AND PLAN: This patient's history is not very clear what is going on with him. I recommended MRI of the brain with and without contrast. He said he is claustrophobic and he cannot do it except for heavy sedation. Problem with that is that his oxygen saturations is running in 70s and 80s and I think we need to forget that 1-hour before proceeding any further. His COVID antigen test was negative, but as I understand now PCR is being sent. I think that is a good idea because this patient is not vaccinated and that is the first thing we need to exclude. He does have some carotid stenosis and I will go ahead and do a CT angio to get some more confirmatory diagnosis in this patient. It will also give us enhanced CT scan to see if there is any problem with intracranial sinuses. His sed rate is high. It may be because of some infection, but he also may need a rheumatological consults to make sure he does not have temporal arteritis. His headache was diffuse, but unfortunately no biomedical engineering aide comes here. I spent more than 50 minutes of time taking care of this patient today and majority was spent counseling and coordinating. By: 1235 [id number] Rodriguez MD /nt
--- NOTE | ~2020-09-29 | EMS ---
[address] [address] EMS Patient Care Report Name: HAROON ROBERTSON Room: [place] [address] ADM IN [facility]#: [id number] Admission: 09/29/20 Attend Phys: Medhat Morales MD Discharge: Date of : 44 Report #: [id number] THIS REPORT FOR: //name// Report Transmitted: 09/29/2020 13:32 EMS Care Summary [place] Incident [id number] @ 09/29/2020 12:56 Incident Location [address] [place] [address] Patient HAROON ROBERTSON Male, 75 Years 1945 Patient Address [address] [place] [address] [address] [place] [address] Patient History Cerebral infarction, unspecified,Cardiac Condition - Other,Atrial Fibrillation,Myocardial Infarction (OR),Hypertension (HTN),Presence of coronary angioplasty implant and graft,Congestive Heart Failure (CHF),Mental disorder, not otherwise specified,Anxiety disorder, unspecified,Endocrine Condition - Other,Pneumonia, unspecified organism, Patient Allergies No known allergies, Chief Complaint Pain Disposition Transported No Lights/[place] Dis[place] Reason Chest Pain (Non-Traumatic) Transported To [facility] Narrative [facility] WAS DISPATCHED TO A SENIOR LIVING facility FOR CHEST PAIN. [facility] arrived ON SCENE WITHOUT incident. THE patient WHO GOES BY MI WAS FOUND ALERT [address] [address] EMS Patient Care Report Name: HAROON ROBERTSON Room: [place] [address] ADM IN [facility]#: [id number] Admission: 09/29/20 Attend Phys: Medhat Morales MD Discharge: Date of : 43 Report #: [id number] AND oriented IN NO apparent DISTRESS IN BED. STAFF STATED THAT MI WAS COMPLAINING OF CHEST PAIN STARTING THIS MORNING AND WAS ALSO WEAKER THAN NORMAL. VITALS AND A 12-LEAD ARE TAKEN MI STATED THAT HE HAD MORE HEAD PAIN THAN CHEST PAIN. MI IS MOVED OVER TO the COT WHERE THE STRAPS ARE FASTENED AND THE RAILS PLACED IN THE UPRIGHT POSITION. THE COT IS SECURED IN THE BACK OF THE ambulance WITH THE DOORS CLOSED. A SECOND SET OF VIALS ARE TAKEN vascular ACCESS IS obtained. [facility] BEGAN transport. EN route MI REST ON THE COT IN NO apparent DISTRESS. VITALS ARE MONITORED MEDICAL HISTORY AND allergies ARE OBTAINED FROM PAPERWORK. RADIO REPORT IS given TO THE HOSPITAL WITH NO QUESTIONS OR ORDERS received. [facility] T Zhou ARRIVED AT destination WITHOUT INCIDENT. PATIENT CARE AND REPORT IS given TO STAFF MI IS MOVED OVER TO the BED IN ROOM 16. [facility] CLEAR. BROOKE FRIED, EMT-P Initial Vitals @13:24Pain: 09/21, @13:33Pain: 08/22, @13:16SpO2: 97, @13:26SpO2: 97, @13:09 @13:06P: 78,R: 18,BP: 182/84, @13:16P: 85,R: 18,BP: 182/86, @13:26P: 87,R: 18,BP: 171/70, @13:06GCS: 15, @13:16GCS: 15, @13:26GCS: 15, @13:03 @13:21Glucose: 93, Assessments @13:03MENTAL:SKIN:HEENT:LUNG SOUNDS:ABDOMEN:PELVIS//GI:EXTREMITIES:PULSE:NEURO: Impression Hypertension Procedures @13:20 cc () Site: Antecubital-LeftResponse: UnchangedSucceeded@13:20 cc () Response: UnchangedSucceeded@13:0912-Lead ECGResponse: UnchangedSucceeded Timeline 12:55,Call Received 12:55,Dispatch Notified 12:55,Psap Call 12:56,Dispatched 12:56,En Route 13:00,[place] [address] EMS Patient Care Report Name: HAROON ROBERTSON Room: [address] IN [facility]#: [id number] Admission: 09/29/20 Attend Phys: Medhat Morales MD Discharge: Date of : 43 Report #: [id number] 13:03,At Patient 13:03,BP: / M,PULSE: ,RR: R,SPO2: Ox,ETCO2: ,BG: ,PAIN: ,GCS: , 13:06,BP: 182/84 M,PULSE: 78,RR: 18 R,SPO2: Ox,ETCO2: ,BG: ,PAIN: ,GCS: , 13:06,BP: / M,PULSE: ,RR: R,SPO2: Ox,ETCO2: ,BG: ,PAIN: ,GCS: 15, 13:09,12-Lead ECG,Response: UnchangedSucceeded, 13:09,BP: / M,PULSE: ,RR: R,SPO2: Ox,ETCO2: ,BG: ,PAIN: ,GCS: , 13:16,BP: / M,PULSE: ,RR: R,SPO2: 97 Ox,ETCO2: ,BG: ,PAIN: ,GCS: , 13:16,BP: 182/86 M,PULSE: 85,RR: 18 R,SPO2: Ox,ETCO2: ,BG: ,PAIN: ,GCS: , 13:16,BP: / M,PULSE: ,RR: R,SPO2: Ox,ETCO2: ,BG: ,PAIN: ,GCS: 15, 13:20, cc Site: Antecubital-Left,Response: UnchangedSucceeded, 13:20, cc Site: ,Response: UnchangedSucceeded, 13:21,BP: / M,PULSE: ,RR: R,SPO2: Ox,ETCO2: ,B,PAIN: ,GCS: , 13:24,Depart Scene 13:24,BP: / M,PULSE: ,RR: R,SPO2: Ox,ETCO2: ,BG: ,PAIN: 7,GCS: , 13:26,BP: / M,PULSE: ,RR: R,SPO2: 97 Ox,ETCO2: ,BG: ,PAIN: ,GCS: , 13:26,BP: 171/70 M,PULSE: 87,RR: 18 R,SPO2: Ox,ETCO2: ,BG: ,PAIN: ,GCS: , 13:26,BP: / M,PULSE: ,RR: R,SPO2: Ox,ETCO2: ,BG: ,PAIN: ,GCS: 15, 13:33,BP: / M,PULSE: ,RR: R,SPO2: Ox,ETCO2: ,BG: ,PAIN: 6,GCS: , 13:33,At Destination 13:50,Call Closed Disclaimer v1.1 Copyright 2020 [employer] This EMS Care Summary contains data elements from the applicable legal record (which may be displayed differently). It is designed to provide pertinent information for the following purposes: continuity of care, clinical quality, and state data reporting. The complete legal record is available to ED staff and administrators of the receiving hospital in ES's Patient Tracker. All data is provided "as is."
[~2020-09-29 13:38] MED LIST changes: +BENAZEPRIL HCL20 MG PO; +LOPRESSOR50 PO; +WARFARIN SODIUM5 MG PO
[2020-09-29 13:45] VITALS: BP 178/99
[2020-09-29] MEDS ORDERED: CARVEDILOL3.125 MG PO (13:53)
[2020-09-29] MEDS ORDERED: XANAX 0.5 MG0.5 MG PO (13:54)
[2020-09-29] MEDS ORDERED: DESYREL150 MG PO (13:54)
[2020-09-29 13:58] LABS: ABSOLUTE EOSINOPHILS 0.1 thou/uL (0.0-0.7); ABSOLUTE LYMPHOCYTES 1.3 thou/uL (0.8-5.3); ABSOLUTE MONOCYTES 0.9 thou/uL (0.0-1.2); ABSOLUTE NEUTROPHILS 7.6 thou/uL (1.6-8.1); BASOPHILS 0.5 %; EOSINOPHILS 1.3 %; HEMATOCRIT 37.5 % (42.0-52.0); HEMOGLOBIN 12.5 gm/dL (14.0-18.0); LYMPHOCYTES 12.7 %; MCHC 33.3 g/dL (28.0-37.0); MCV 81.2 fL (80.0-100.0); MONOCYTES 8.6 %; MPV 8.7 fl. (7.2-11.1); NUCLEATED RBCS 0 /100WBC; PLATELET COUNT* 252 thou/uL (150-400); POLYS 76.9 %; RBC 4.62 mil/uL (4.50-6.00); RDW-CV 15.7 % (10.5-14.5); WBC 9.9 thou/uL (4.0-11.0)
[2020-09-29 14:08] LABS: CALCIUM 8.6 mg/dL (8.5-10.1); CREATININE 1.2 mg/dL (0.6-1.3)
[2020-09-29 14:21] LABS: CK-MB MASS 1.1 ng/mL (<0.5-3.6); MAGNESIUM 1.8 mg/dL (1.8-2.4); TOTAL BILIRUBIN 1.6 mg/dL (<0.1-1.0); TOTAL PROTEIN 7.8 g/dL (6.4-8.2)
[2020-09-29 15:26] LABS: PROTIME 20.4 Seconds (9.20-11.50)
[2020-09-29 18:30] VITALS: BP 187/98
[2020-09-29 22:10] VITALS: BP 175/64
[2020-09-30] VITALS (7 sets, daily range): BP systolic 117–192; BP diastolic 66–89
[2020-09-30 03:10] LABS: ABSOLUTE BASOPHILS 0.1 thou/uL (0.0-0.2); ABSOLUTE EOSINOPHILS 0.2 thou/uL (0.0-0.7); ABSOLUTE LYMPHOCYTES 1.1 thou/uL (0.8-5.3); ABSOLUTE MONOCYTES 0.8 thou/uL (0.0-1.2); ABSOLUTE NEUTROPHILS 8.3 thou/uL (1.6-8.1); BASOPHILS 0.6 %; EOSINOPHILS 1.4 %; HEMATOCRIT 34.7 % (42.0-52.0); HEMOGLOBIN 11.5 gm/dL (14.0-18.0); LYMPHOCYTES 10.7 %; MCH 26.9 pg (26.0-34.0); MCHC 33.2 g/dL (28.0-37.0); MONOCYTES 7.4 %; MPV 8.5 fl. (7.2-11.1); NUCLEATED RBCS 0 /100WBC; PLATELET COUNT* 245 thou/uL (150-400); POLYS 79.9 %; RBC 4.28 mil/uL (4.50-6.00); RDW-CV 15.7 % (10.5-14.5); WBC 10.5 thou/uL (4.0-11.0)
[2020-09-30 03:34] LABS: CALCIUM 8.1 mg/dL (8.5-10.1); CREATININE 1.1 mg/dL (0.6-1.3); POTASSIUM 4.3 mmol/L (3.5-5.1)
[2020-09-30 03:45] LABS: CHOLESTEROL 71 mg/dL (<200); HDL CHOLESTEROL 31 mg/dL (>40); LDL CHOLESTEROL 33 mg/dL (<100); TC:HDL 2.3 Ratio (Not establshd); TRIGLYCERIDE 37 mg/dL (<150); VLDL 7 mg/dL (<40)
[2020-09-30 03:49] LABS: SERUM ASSESSMENT Clear
--- NOTE | 2020-09-30 14:55 | EKG ---
[place] [address] ELECTROCARDIOGRAM REPORT Name: HAROON ROBERTSON Room: [place] [address] ADM IN 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 : 1945 Requested By: Greg Goff Order Number: [id number] MD: Andres Barton Measurements Intervals [place] Rate: 80 P: TX: QRS: 29 QRSD: 82 T: 86 QT: 393 QTc: 454 Interpretive Statements Atrial fibrillation with pvc Borderline repol abnrm, anterolateral leads Baseline wander in lead(s) I,aVL Compared to ECG 09/13/2020 00:58:07 rate has slowed Electronically Signed On 09-30-2020 14:55:32 CDT by Andres Barton [email or web address] <ELECTRONICALLY SIGNED> By: Andres Barton MD, FAC 09/30/20 1455 1342 1342 Andres Barton MD, FAC /EPI
[2020-10-01 00:19] VITALS: BP 146/70
[2020-10-01 02:07] LABS: GLYCOHEMOGLOBIN (HGB A1C) 8.5 % (4.8-5.6)
[2020-10-01 04:27] VITALS: BP 144/94
[2020-10-01 08:40] LABS: PROTIME 33.2 Seconds (9.20-11.50)
[2020-10-01 08:41] LABS: INR 3.4
[2020-10-01 15:09] VITALS: BP 132/62
[2020-10-01 18:30] VITALS: BP 122/86
[2020-10-01 20:00] VITALS: BP 161/82
[2020-10-02] VITALS: BP 167/83
[2020-10-02 04:58] VITALS: BP 149/77
[2020-10-02 05:33] LABS: CALCIUM 8.3 mg/dL (8.5-10.1); CREATININE 1.4 mg/dL (0.6-1.3)
[2020-10-02 05:35] LABS: PROTIME 48.9 Seconds (9.20-11.50)
[2020-10-02 05:43] LABS: HEMATOCRIT 32.4 % (42.0-52.0); HEMOGLOBIN 10.6 gm/dL (14.0-18.0); MCH 26.5 pg (26.0-34.0); MCHC 32.8 g/dL (28.0-37.0); MPV 8.7 fl. (7.2-11.1); RDW-CV 15.8 % (10.5-14.5); WBC 8.4 thou/uL (4.0-11.0)
[2020-10-02 05:49] LABS: INR 5.1
[2020-10-02 08:00] VITALS: BP 156/76
--- NOTE | 2020-10-02 13:53 | EKG ---
[place] [address] ELECTROCARDIOGRAM REPORT Name: HAROON ROBERTSON Room: [address] IN .R.#: [id number] Admission: 09/29/20 Attend Phys: Medhat Morales, Discharge: Date of : 43 Date of Service: 10/02/20 0112 Report #: [id number] THIS REPORT FOR: //name// 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 : 1945 Requested By: Medhat Morales Order Number: [id number] Reading MD: Andres Barton Measurements Intervals [place] Rate: 64 P: CO: QRS: 15 QRSD: 96 T: 63 QT: 476 QTc: 491 Interpretive Statements Atrial fibrillation Borderline prolonged QT interval Compared to ECG 09/29/2020 13:42:48 Ventricular premature complex(es) no longer present Electronically Signed On 10-02-2020 13:53:21 CDT by Andres Barton [email or web address] <ELECTRONICALLY SIGNED> By: Andres Barton MD, [facility] 10/02/20 1353 1 1 Andres Barton MD, [facility] /EPI
[2020-10-02 17:07] VITALS: BP 155/87
== END 2020-10-02 17:22 | DRG 871 ==
LOC: M.ERS 13:38 → M.TBA-ER 14:27 → M.ORTHSURG 09-30 20:12
PROVIDERS: Family Medicine; ADMIT Internal Medicine; ATTEND Internal Medicine
DX: A41.9 Sepsis, unspecified organism (principal); J69.0 Pneumonitis due to inhalation of food and vomit; J15.6 Pneumonia due to other Gram-negative bacteria; I50.33 Acute on chronic diastolic (congestive) heart failure; J96.20 Acute and chronic respiratory failure, unspecified whether with hypoxia or hypercapnia; I48.91 Unspecified atrial fibrillation; I16.0 Hypertensive urgency; E11.9 Type 2 diabetes mellitus without complications; F41.9 Anxiety disorder, unspecified; R65.20 Severe sepsis without septic shock; I11.0 Hypertensive heart disease with heart failure; Z20.822 Contact with and (suspected) exposure to COVID-19; Z79.899 Other long term (current) drug therapy; Z86.73 Personal history of transient ischemic attack (TIA), and cerebral infarction without residual deficits; Z79.82 Long term (current) use of aspirin; Z87.891 Personal history of nicotine dependence